=== PATIENT | male | born 1960 | race Caucasian/White ===

== ENCOUNTER 2016-11-28 06:31 | Outpatient (CLI) | payer OTHER ==
[~2016-11-28] VITALS: Ht 182.9 cm; Wt 73.9 kg
[~2016-11-28 06:31] MED LIST: SULF500T PO
== END 2016-11-28 15:22 ==
LOC: PREOP 06:31
PROVIDERS: ATTEND Internal Medicine
DX: Z01.818 Encounter for other preprocedural examination (principal); K51.90 Ulcerative colitis, unspecified, without complications

== ENCOUNTER 2016-11-29 09:15 | Outpatient (CLI) | payer OTHER ==
[~2016-11-29] VITALS: Ht 182.9 cm; Wt 73.9 kg
--- NOTE | 2016-11-29 08:15 | HISTORY AND PHYSICAL ---
DICTATING PHYSICIAN: Dr. Lopez DATE OF ADMISSION: 11/29/2016 Mr. Morin is a 56-year-old white male seen for wellness evaluation on 11/27. He is being set-up. He is set up for colonoscopy on the 29 of November due to an 18 year history of ulcerative colitis. Because of the significant increased risk for colon cancer due to the duration of his disease. He is on q.2 year schedule. His last colonoscopy a little over 2 years ago revealed no evidence for neoplasia and disease appeared to be under good control. Over the last year the patient reports he continues to feel. He has been physically active and reports 1 to 2 bowel movements formed per day. He has noted no blood in his stool. Denies abdominal pain or bowel habit change. He also denies melena. MEDICATIONS: Sulfasalazine 3 grams daily in divided doses. SOCIAL HISTORY: He has no past smoking history and very rare alcohol consumption in the form of a beer or 2. FAMILY HISTORY: Parents are living at the age of 80. Both have a history of coronary artery disease. Father has history of prostate cancer. He has one brother with a history of epilepsy, another brother with no health problems and one sister with coronary artery disease, status post CABG. PHYSICAL EXAMINATION: Revealed normal weight well-appearing white male in no acute distress. VITAL SIGNS: Blood pressure 120/76. CHEST: Clear. CV: Regular rate and rhythm without murmur, S3 or S4. ABDOMEN: Soft, supple without masses, organomegaly or tenderness. RECTAL EXAMINATION: Deferred to the time of colonoscopy. EXTREMITIES: Reveal no cyanosis, clubbing, or edema. Blood tests including a chemistry panel, lipid panel, CBC and a PSA were reviewed, lipid panel parameters are favorable and due to weight loss improved from last year with a total cholesterol of 175 and HDL of 49, triglyceride level of 70 and an LDL of 112. Prep instructions with [employer] prep kit were given and questions were answered in regards to colonoscopy. He was strongly encouraged to continue current healthy diet and exercise habits. I will see him back in one year for yearly wellness examination. Ulcerative colitis under good control. Colonoscopy scheduled for the 29 of November. Job ID: [id number] Dictated Date: 11/27/2016 17:12:00 Security Assistant Date: 11/28/2016 09:16:57/alejandro
[2016-11-29] MEDS ORDERED: 1/2 NS IV SOLUTION 1,000 ML IV STA (09:22)
[2016-11-29] MEDS ORDERED: LIDOCAINE JELLY 2% (XYLOCAINE) 5 ML TUBE MM PRN (09:30)
[2016-11-29] MEDS ORDERED: 1/2 NS IV SOLUTION 1,000 ML IV ONE (09:38)
[2016-11-29] MEDS ORDERED: LIDOCAINE JELLY 2% (XYLOCAINE) 5 ML TUBE ONE (09:52)
[2016-11-29 09:56] VITALS: BP 116/79
[2016-11-29] MEDS ORDERED: MIDAZOLAM 2 MG/2 ML (VERSED) VIAL IV PRN (10:00)
[2016-11-29] MEDS: fentaNYL INJECTION 100 MCG/2 ML AMP IVP PRN ×2 (10:08→10:11)
--- NOTE | 2016-11-29 10:13 | Pre-Op Note & Conscious Sedat ---
Pre-Operative Progress Note H&P Reviewed The H&P was reviewed, patient examined and no changes noted. Date H&P Reviewed: Nov 29, 2016 Time H&P Reviewed: 08:45 Conscious Sedation Pre-Proced ASA Class: 2 Airway Mallampati Classification: (nooksack appropriate class) I. II. III, IV Lungs Heart ASA score ASA 1: a normal healthy patient ASA 2: a patient with a mild systemic disease (mid diabetes, controlled hypertension, obesity ASA 3: a patient with a severe systemic disease that limits activity (angina , COPD, prior Myocardial infarction) ASA 4: a patient with an incapacitating disease that is a constant threat to life (CHF, renal failure) ASA 5: a moribund patient not expected to survive 24 hrs. (ruptured aneurysm) ASA 6: a declared brain patient whose organs are being harvested. For emergent operations, add the letter E after the classification Grade 1 Sedation Plan: Analgesia, Amnesia, Plan communicated to team members, Discussed options with patient/fam, Discussed risks with patient/fam Note The patient is an appropriate candidate to undergo the planned procedure, sedation, and anesthesia. The patient immediately re-assessed prior to indication. FLIP JUAREZ MD Nov 29, 2016 10:13
[2016-11-29 11:00] VITALS: BP 130/79
[2016-11-29 11:30] VITALS: BP 134/75
[2016-11-29 11:50] VITALS: BP 134/75
--- NOTE | 2016-12-02 01:42 | OPERATIVE REPORT ---
PROCEDURE PHYSICIAN: FLIP JUAREZ DATE OF PROCEDURE: 11/29/2016 COLONOSCOPY SUMMARY: PROCEDURE: The patient was placed in left lateral position. Prior to undergoing colonoscopy, digital rectal evaluation was performed. Anal sphincter tone was normal and the perianal reflex was intact. The prostate is normal in size, anodular and nontender to digital inspection. No abnormalities were noted to digital inspection of the anal canal or distal rectal vault. The colonoscope was then inserted into the rectum and under visualization, advanced to the cecum. The cecum was identified by identification of the ileocecal valve and cecal strap. Photographic documentation was obtained. Careful inspection was made as colonoscope was withdrawn. FINDINGS: The rectum was unremarkable. Because of a history of ulcerative colitis now 18 years since his initial diagnosis, a biopsy was obtained from the rectum and submitted for evaluation for microscopic inflammation or dysplasia. Present in the distal sigmoid colon was a diminutive questionable adenoma. It was sessile in nature 3 x 5 mm in size. It was biopsied and ablated, and submitted for histopathology with no subsequent blood loss. The remainder of the sigmoid colon was unremarkable. The descending colon, splenic flexure and transverse colon as well as the hepatic flexure were unremarkable. One questionable flat adenoma was present in the mid ascending colon. It was photographed, biopsied, ablated, and submitted for histopathology. The remainder of the ascending colon was unremarkable as was the ileocecal valve and the cecum. A biopsy from the ascending colon was obtained for evaluation for dysplasia and microscopic inflammation. Two questionable adenomatous polyps were biopsied and ablated today with no blood loss. As long as there are no surprises on histopathology report, we will be advocating repeat surveillance colonoscopy in 2 years considering this patient's long-standing history of ulcerative colitis now 18 years out from initial diagnosis. There was no evidence for inflammation. There is no evidence for colitis on gross inspection today with histopathology results from the ascending colon and rectum pending. Job ID: [id number] Dictated Date: 11/29/2016 12:07:58 Full Stack Python Developer Date: 12/02/2016 01:35:46 / dariel BOX
== END 2016-11-29 11:50 | disposition home or self-care (01) ==
LOC: ENDO 09:15
PROVIDERS: ATTEND Internal Medicine
DX: Z09 Encounter for follow-up examination after completed treatment for conditions other than malignant neoplasm (principal); Z87.19 Personal history of other diseases of the digestive system
CPT/HCPCS: 88305

== ENCOUNTER 2018-12-23 11:15 | Outpatient (CLI) | payer OTHER ==
[~2018-12-23] VITALS: Ht 182.9 cm; Wt 73.9 kg
[2018-12-23] MEDS ORDERED: SULF500T7 PO (11:21)
== END 2018-12-23 11:34 | disposition home or self-care (01) ==
LOC: PREOP 11:15
PROVIDERS: ATTEND Internal Medicine
DX: Z01.818 Encounter for other preprocedural examination (principal)

== ENCOUNTER 2018-12-25 07:24 | Day surgery (SDC) | payer OTHER ==
--- NOTE | 2018-12-16 18:22 | HISTORY AND PHYSICAL ---
DATE OF SERVICE: COLONOSCOPY HISTORY AND PHYSICAL PRIMARY CARE PHYSICIAN: Flip Juarez MD HISTORY OF PRESENT ILLNESS: The patient is a 58-year-old white male, seen for yearly wellness evaluation in the office on 12/14/2018. He has a history of ulcerative colitis and last colonoscopy was a little over 4 years ago at which time, he had no evidence for dysplasia. He was initially diagnosed with ulcerative colitis 22 years ago. He reports 1-2 bowel movements per day that are formed. He has noted no blood in the stool and has noted no abdominal pain. He states that he has been feeling well. He recently returned from a trip where they climbed a summit in [facility], but took several days. He exercises on a regular basis to stay in shape for hiking vacations. FAMILY HISTORY: Father is still living at the age of 79 with a history of prostate cancer and has had myocardial infarction and pancreatitis. Mother is living at age 79 with no reported health problems. He has had one older brother with a history of coronary artery disease and two sisters, one has no health problems and the other one has epilepsy. There is no known family history for colon cancer except for one paternal grandfather, who did succumb to the disease at the age of 71. PAST SURGICAL HISTORY: He has no significant past surgical history. 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 He. PHYSICAL EXAMINATION: GENERAL: Reveals a well-appearing, normal weight, white male, in no acute distress. VITAL SIGNS: Blood pressure is 116/70, weight 159.4, 6 feet 3 inches tall, BMI 21. HEENT: Unremarkable. He is a Mallampati 1 pharyngeal configuration. NECK: Revealed no JVD, adenopathy or bruits. CHEST: Clear to auscultation. CARDIOVASCULAR: Revealed a regular rate and rhythm without murmur, S3 or S4. ABDOMEN: Soft, supple without mass, organomegaly or tenderness. EXTREMITIES: Reveal no cyanosis, clubbing or edema. SKIN: Evaluation reveals no suspicious nevi. LABORATORY DATA: Blood tests were reviewed with the patient. He has stable mild neutropenia asymptomatic, white count of 4.9 thousand and normal differential. CBC was otherwise unremarkable. Chemistry panel was unremarkable. His total cholesterol was 197 with an HDL of 48, triglyceride level of 77 and LDL of 134. Fasting sugar was 88 and PSA was stable at 1.04. ASSESSMENT AND PLAN: Unremarkable wellness examination. Due to the length of his ulcerative colitis, he is in need of surveillance colonoscopy and we will obtain sequential biopsies to rule out any evidence for dysplasia. His sulfasalazine was refilled and I will see him back on a yearly basis. Job ID: [id number] DocumentID: [id number] Dictated Date: 12/14/2018 16:47:55 Senior Care Assistant Date: 12/14/2018 18:11:42 Dictated By: FLIP JUAREZ MD
[~2018-12-25] VITALS: Ht 182.9 cm; Wt 73.9 kg
[2018-12-25] VITALS (12 sets, daily range): BP systolic 118–131; BP diastolic 67–89
[~2018-12-25 07:24] MED LIST changes: +SULF500T7 PO
[2018-12-25] MEDS ORDERED: D5 LR IV SOLUTION 1,000 ML IV ONE (07:27)
[2018-12-25] MEDS ORDERED: D5 LR IV SOLUTION 1,000 ML IV STA (07:41)
[2018-12-25] MEDS ORDERED: MIDAZOLAM 2 MG/2 ML (VERSED) VIAL IVP ONE (07:45)
[2018-12-25] MEDS ORDERED: fentaNYL INJECTION 100 MCG/2 ML AMP IVP ONE (07:45)
[2018-12-25] MEDS ORDERED: LIDOCAINE JELLY 2% 6 ML SYRINGE MM PRN (07:45)
[2018-12-25] MEDS ORDERED: MIDAZOLAM 2 MG/2 ML (VERSED) VIAL ONE ×2 (08:12→08:13)
[2018-12-25] MEDS ORDERED: fentaNYL INJECTION 100 MCG/2 ML AMP ONE (08:12)
--- NOTE | 2018-12-25 08:55 | Pre-Op Note & Conscious Sedat ---
Pre-Operative Progress Note H&P Reviewed The H&P was reviewed, patient examined and no changes noted. Date H&P Reviewed: Dec 25, 2018 Time H&P Reviewed: 07:55 Conscious Sedation Pre-Proced ASA Score 1 For ASA 3 and 4: Consider anesthesia and medical clearance. Also, for patients with a history of failed moderate sedation consider anesthesia. Airway Lungs Heart ASA score ASA 1: a normal healthy patient ASA 2: a patient with a mild systemic disease (mid diabetes, controlled hypertension, obesity ASA 3: a patient with a severe systemic disease that limits activity (angina, COPD, prior Myocardial infarction) ASA 4: a patient with an incapacitating disease that is a constant threat to life (CHF, renal failure) ASA 5: a moribund patient not expected to survive 24 hrs. (ruptured aneurysm) ASA 6: a declared brain- patient whose organs are being harvested. For emergent operations, add the letter E after the classification Mallampati Classification Grade 1 Sedation Plan Analgesia, Amnesia, Plan communicated to team members, Discussed options with patient/fam, Discussed risks with patient/fam The patient is an appropriate candidate to undergo the planned procedure, sedation, and anesthesia. The patient immediately re-assessed prior to indication. FLIP JUAREZ MD Dec 25, 2018 08:55
--- NOTE | 2018-12-25 14:52 | OPERATIVE REPORT ---
DATE OF SERVICE: COLONOSCOPY SUMMARY INDICATION FOR THE PROCEDURE: Surveillance colonoscopy due to over 20-year history of ulcerative colitis and past history of colon polyps. The patient was placed in the left lateral decubitus position. Prior to undergoing colonoscopy, digital rectal evaluation was performed. Anal sphincter tone was normal and the perianal reflexes intact. Prostate is small in size, anodular, nontender to digital inspection. The colonoscope was then inserted into the rectum and under direct visualization advanced to cecum. The cecum was identified by identification of the ileocecal valve and cecal strap. Photographic documentation was obtained. Careful inspection was made as the colonoscope was withdrawn. Quality of prep was good. FINDINGS: There is no evidence for internal or external hemorrhoids and the rectum, sigmoid colon, descending colon, transverse colon, ascending colon and cecum were unremarkable. No inflammatory change was noted. No evidence for diverticular disease or neoplasia was identified. Because of the length of this patient's ulcerative colitis, surveillance biopsies were obtained and submitted for histopathology. We will likely recommend 3-year surveillance interval provided there is no evidence for dysplasia on histopathology reporting. Job ID: [id number] DocumentID: [id number] Dictated Date: 12/25/2018 09:46:34 Wharf Tender Head Date: 12/25/2018 14:51:20 Dictated By: FLIP JUAREZ MD
== END 2018-12-25 09:40 | disposition home or self-care (01) ==
LOC: ENDO 07:24
PROVIDERS: ATTEND Internal Medicine
DX: Z12.11 Encounter for screening for malignant neoplasm of colon (principal); D12.8 Benign neoplasm of rectum; K63.89 Other specified diseases of intestine; Z87.19 Personal history of other diseases of the digestive system; Z85.49 Personal history of malignant neoplasm of other male genital organs; Z82.49 Family history of ischemic heart disease and other diseases of the circulatory system; Z80.0 Family history of malignant neoplasm of digestive organs
CPT/HCPCS: 88305

== ENCOUNTER → 2021-11-20 | Outpatient (CLI) | payer SELFPAY ==
[~2021-11-20] MED LIST changes: +SLF500T PO; -SULF500T7 PO
--- NOTE | 2021-11-20 15:35 | Diagnostic Imaging Report ---
INDICATION: Coronary artery disease. TECHNIQUE: The CT coronary calcium study was performed with noncontrasted images of the heart. Dose reduction protocol was used. FINDINGS: The raw data images demonstrate no mediastinal or hilar adenopathy. The aorta is normal in caliber. The visualized portions of the lung patrick are clear although the entirety of the lungs is not included on this study. There is no overt pleural fluid collection. CT coronary calcium evaluation demonstrates a score of 38.3 for the calcifications in the proximal LAD and left main coronary artery. A score of 2 was given for a small calcification in the right coronary artery. IMPRESSION: The coronary calcium score was 40.3, compatible with a mild overall plaque burden. No other incidental findings. Dictated by: Dictated on workstation # [id number]
== END ==
LOC: RAD FS 12:23
PROVIDERS: ATTEND Internal Medicine
DX: I25.10 Atherosclerotic heart disease of native coronary artery without angina pectoris (principal)
CPT/HCPCS: 75571

== ENCOUNTER 2021-11-21 05:29 | Outpatient (CLI) | payer BC ==
[~2021-11-21] VITALS: Ht 182.9 cm; Wt 74.8 kg
== END 2021-11-21 09:02 | disposition home or self-care (01) ==
LOC: PREOP 05:29
PROVIDERS: ATTEND Internal Medicine
DX: Z01.818 Encounter for other preprocedural examination (principal)

== ENCOUNTER 2021-11-23 09:27 | Day surgery (SDC) | payer BC ==
[~2021-11-23] VITALS: Ht 183 cm; Wt 74.8 kg
[2021-11-23] MEDS ORDERED: LACTATED RINGERS 1,000 ML IV STA (09:29)
[2021-11-23 10:00] VITALS: BP 122/83
--- NOTE | 2021-11-23 10:30 | Pre-Op Note & Conscious Sedat ---
Pre-Operative Progress Note H&P Reviewed The H&P was reviewed, patient examined and no changes noted. Date H&P Reviewed: Nov 23, 2021 Time H&P Reviewed: 10:29 Conscious Sedation Pre-Proced ASA Score 2 For ASA 3 and 4: Consider anesthesia and medical clearance. Also, for patients with a history of failed moderate sedation consider anesthesia. Airway Lungs Heart ASA score ASA 1: a normal healthy patient ASA 2: a patient with a mild systemic disease (mid diabetes, controlled hypertension, obesity ASA 3: a patient with a severe systemic disease that limits activity (angina, COPD, prior Myocardial infarction) ASA 4: a patient with an incapacitating disease that is a constant threat to life (CHF, renal failure) ASA 5: a moribund patient not expected to survive 24 hrs. (ruptured aneurysm) ASA 6: a declared brain- patient whose organs are being harvested. For emergent operations, add the letter E after the classification Mallampati Classification Grade 1 Sedation Plan Analgesia, Amnesia, Plan communicated to team members, Discussed options with patient/fam, Discussed risks with patient/fam The patient is an appropriate candidate to undergo the planned procedure, sedation, and anesthesia. The patient immediately re-assessed prior to indication. FLIP JUAREZ MD Nov 23, 2021 10:30
[2021-11-23] MEDS ORDERED: PROPOFOL INJECTION 50 ML IV ONE (11:28)
[2021-11-23 12:00] VITALS: BP 107/57
[2021-11-23 12:05] VITALS: BP 109/62
--- NOTE | 2021-11-23 12:28 | Anesthesia-General Post-Op ---
MAC Patient Condition Mental Status/LOC: Same as Preop Cardiovascular: Satisfactory Nausea/Vomiting: Absent Respiratory: Satisfactory Pain: Controlled Complications: Absent Post Op Complications Complications None Follow Up Care/Instructions Patient Instructions None needed. Anesthesiology Discharge Order Discharge Order Patient is doing well, no complaints, stable vital signs, no apparent adverse anesthesia problems. No complications reported per nursing. RIVERA DOYLE CRNA Nov 23, 2021 12:28
[2021-11-23 12:30] VITALS: BP 123/81
--- NOTE | 2021-11-23 22:54 | OPERATIVE REPORT ---
DATE OF SERVICE: COLONOSCOPY SUMMARY INDICATION FOR THE PROCEDURE: Surveillance colonoscopy, history of ulcerative colitis. DESCRIPTION OF PROCEDURE: The patient was placed in the left lateral decubitus position. Prior to undergoing colonoscopy, digital rectal evaluation was performed. Anal sphincter tone was normal and the perianal reflexes intact. No abnormalities were noted on digital inspection of anal canal or distal rectal vault. Prostate is unremarkable on digital inspection. The colonoscope was then inserted into the rectum and under direct visualization advanced to cecum. The cecum was identified by identification of the ileocecal valve and cecal strap. Photographic documentation was obtained. Careful inspection was made as the colonoscope was withdrawn. Quality of prep was good. FINDINGS: There was no evidence for internal or external hemorrhoids and the rectum was unremarkable. A biopsy was obtained and submitted for any evidence for dysplasia. Present in the distal sigmoid colon was a subtle sessile polyp. It was photographed and biopsied and ablated with no subsequent blood loss. The remainder of the sigmoid colon was unremarkable as was the descending colon, questionable polyp and noted at the splenic flexure, was biopsied and ablated and submitted for histopathology. The transverse colon, hepatic flexure, ascending colon, and cecum were unremarkable. Ascending colonic biopsy was obtained and submitted for histopathology and rule out any evidence for dysplasia. ASSESSMENT: One distal sigmoid polyp was removed via hot biopsy. There was a questionable splenic flexure polyp removed in similar fashion with biopsies for histopathology obtained from the rectum and ascending colon considering history of ulcerative colitis. There was no evidence for inflammatory change on gross inspection today. Job ID: [id number] DocumentID: [id number] Dictated Date: 11/23/2021 12:07:24 Rabies Inspector Date: 11/23/2021 22:53:21 Dictated By: FLIP JUAREZ MD
--- NOTE | 2021-11-26 13:31 | HISTORY AND PHYSICAL ---
DATE OF SERVICE: COLONOSCOPY HISTORY AND PHYSICAL HISTORY OF PRESENT ILLNESS: The patient was seen for yearly wellness evaluation. He does have longstanding history of ulcerative colitis for which he currently is on sulfasalazine reporting continued good control with no diarrhea or melena. His last colonoscopy was three years ago. He had no evidence for dysplasia or neoplasia but due to longstanding ulcerative colitis he is being set up for screening colonoscopy. He reports that he has been feeling well. He has not been as active with more in his words dietary indiscretion. His weight was only up slightly 2.8 pounds 164.8. He has had no blood in the stool. Denies diarrhea or abdominal pain and has had no urgency. He reports there have been no changes in family history. Parents are living. There is a strong family history for vascular disease in father and one sister with early vascular disease. SOCIAL HISTORY: The patient is employed. No significant alcohol consumption. No past smoking history. PHYSICAL EXAMINATION: GENERAL: Reveals a white male, appeared to be in no acute distress. VITAL SIGNS: Weight 164.8 pounds, BMI 24, 6 feet 3 inches tall. Blood pressure 134/72, heart rate 70 and regular. HEENT: Unremarkable. NECK: Revealed no JVD, adenopathy or bruits. CHEST: Clear to auscultation. CARDIOVASCULAR: Reveals regular rate and rhythm without murmur, S3 or S4. ABDOMEN: Soft, supple without mass, organomegaly or tenderness. EXTREMITIES: Reveal no cyanosis, clubbing or edema. SKIN: Evaluation revealed no suspicious nevi. ASSESSMENT AND PLAN: 1. The patient is being set up for screening colonoscopy with longstanding ulcerative colitis, currently under good control on sulfasalazine, we will continue. 2. Risk factors for vascular disease as the patient is leery of medication and other than family history no other significant risk factors. He is being set up for CT for coronary scoring. He did indicate that if he had evidence of calcium marker for plaque formation that he would entertain medication and the respective would redouble dietary and exercise efforts. He is being set up for CT for coronary scoring as well as colonoscopy. Prep instructions were given, and questions were answered. Job ID: [id number] DocumentID: [id number] Dictated Date: 11/19/2021 17:27:25 Medical Researcher Date: 11/19/2021 17:55:25 Dictated By: FLIP JUAREZ MD <Dictated by FLIP JUAREZ MD> <Electronically signed by FLIP JUAREZ MD> 11/21/21 [id number]
== END 2021-11-23 12:40 | disposition home or self-care (01) ==
LOC: ENDO 09:27
PROVIDERS: ATTEND Internal Medicine
DX: Z12.11 Encounter for screening for malignant neoplasm of colon (principal); D12.5 Benign neoplasm of sigmoid colon; D12.2 Benign neoplasm of ascending colon; D12.3 Benign neoplasm of transverse colon; K62.1 Rectal polyp; Z87.11 Personal history of peptic ulcer disease